=== PATIENT | female | born 1950 | race African-American/Black ===

== ENCOUNTER 2021-08-16 11:41 | Outpatient (CLI) | payer MEDICARE ==
[~2021-08-16 11:41] MED LIST: GABA-532 PO; LEVO137T24 PO; LISI40TA13 PO
== END 2021-08-16 23:59 | disposition home or self-care (01) ==
LOC: LAB 11:41
PROVIDERS: ATTEND Student in an Organized Health Care Education/Training Program
DX: Z01.812 Encounter for preprocedural laboratory examination (principal); Z20.822 Contact with and (suspected) exposure to COVID-19
CPT/HCPCS: C9803; U0003

== ENCOUNTER 2021-08-19 11:17 | Inpatient (IN) | payer MEDICARE, OTHER ==
[~2021-08-19] VITALS: Ht 170.2 cm; Wt 76.9 kg
[2021-08-19] MEDS ORDERED: BUPIVACAINE 0.5 % PF 150 MG/30 ML VIAL ONE (11:46)
[2021-08-19] MEDS ORDERED: MORPHINE SULFATE/PF 10 MG/10ML (1MG/ML) AMPUL ONE (11:47)
[2021-08-19 12:00] VITALS: BP 151/89
--- NOTE | 2021-08-19 12:00 | NUR ---
MS RN NOTES. PATIENT ARRIVED MED SURGE UNIT AROUND 1200. WILL HAVE REVERSE LEFT SHOULDER ARTHROPLASTY.
[2021-08-19] MEDS ORDERED: FENTANYL PF 250MCG/5ML AMPUL ONE (12:24)
[2021-08-19] MEDS ORDERED: HYDROMORPHONE INJ 2 MG/ML DISP.SYRIN ONE (12:24)
[2021-08-19] MEDS ORDERED: FENTANYL PF 100MCG/2ML AMPUL ONE ×3 (12:24→14:52)
[2021-08-19] MEDS ORDERED: MIDAZOLAM HCL 2 MG/2ML VIAL ONE (12:25)
[2021-08-19] MEDS ORDERED: FAMOTIDINE/PF INJ 20 MG/2 ML VIAL IV ONE (12:25)
[2021-08-19] MEDS ORDERED: ROCURONIUM BROMIDE 50 MG/5 ML ONE (12:26)
[2021-08-19] MEDS ORDERED: GLYCOPYRROLATE 0.2 MG/ML VIAL ONE (12:28)
[2021-08-19] MEDS ORDERED: POLYMYXIN B SULFATE 500,000 UNITS ONE (13:05)
[2021-08-19] MEDS ORDERED: TRANEXAMIC ACID 1,000 MG in IV NS 0.9% 100 ML IV ONE (13:30)
[2021-08-19] MEDS ORDERED: oxyCODONE/APAP (5/325 MG) 1 UDTAB TABLET PO PRN ×2 (14:30)
[2021-08-19] MEDS ORDERED: MORPHINE SULFATE INJ 4 MG/ML DISP.SYRIN IV PRN (14:30)
[2021-08-19 16:00] VITALS: BP 158/87
--- NOTE | 2021-08-19 16:00 | NUR ---
MS RN NOTES RECEIVED PATIENT FROM OR AFTER SURGERY. SP OF REVERSE LEFT SHOULDER ARTHROPLASTY. PATIENT ALERT AND ORIENTED TIMES 4. SEVERE PAIN NOTED. PERCOCET 10 MG GIVEN. NO RESPIRATORY DISTRESS NOTED. ABLE TO MAKE NEEDS KNOWN. IV ACCESS ON THE RIGHT HAND #20 INTACT AND FLUSHING WELL. ON NS IV HYDRATION AT 75 ML/HR. ALL NEEDS ATTENDED. BED LOCKED IN THE LOWEST POSITION. CALL LIGHT WITHIN REACH. WILL CONTINUE TO MONITOR.
[2021-08-19] MEDS ORDERED: HYDROMORPHONE 1 MG/1 ML DISP.SYRIN IV PRN (17:30)
[2021-08-19] MEDS ORDERED: MAG HYDROX/AL HYDROX/SIMETH 30 ML UDC PO PRN (17:30)
[2021-08-19] MEDS ORDERED: HYDROCODONE/APAP 10/325MG TABLET PO PRN (17:30)
[2021-08-19] MEDS ORDERED: ONDANSETRON HCL/PF 4 MG/2 ML VIAL IVP PRN (17:30)
[2021-08-19] MEDS ORDERED: MAGNESIUM HYDROXIDE 30 ML UDC PO PRN (17:30)
[2021-08-19] MEDS ORDERED: Z GUARD REMEDY 4 OZ OINT TP PRN (17:30)
[2021-08-19] MEDS ORDERED: ZOLPIDEM TARTRATE 5 MG TABLET PO PRN ×2 (17:30→23:00)
[2021-08-19] MEDS ORDERED: ACETAMINOPHEN 325 MG TABLET PO PRN (17:30)
[2021-08-19] MEDS ORDERED: IV NS 0.9% 1,000 ML IV PRN (17:30)
--- NOTE | 2021-08-19 19:30 | NUR ---
MS RN OPENING NOTES PATIENT SP OF REVERSE LEFT SHOULDER ARTHROPLASTY. PATIENT ALERT AND ORIENTED TIMES 4. NO RESPIRATORY DISTRESS NOTED. ABLE TO MAKE NEEDS KNOWN. IV ACCESS ON THE RIGHT HAND #20 INTACT AND FLUSHING WELL. ON NS IV HYDRATION AT 75 ML/HR. ALL NEEDS ATTENDED. BED LOCKED IN THE LOWEST POSITION. CALL LIGHT WITHIN REACH. WILL CONTINUE TO MONITOR.
--- NOTE | 2021-08-19 19:30 | NUR ---
MS RN CLOSING NOTES PATIENT SP OF REVERSE LEFT SHOULDER ARTHROPLASTY. PATIENT ALERT AND ORIENTED TIMES 4. NO RESPIRATORY DISTRESS NOTED. ABLE TO MAKE NEEDS KNOWN. IV ACCESS ON THE RIGHT HAND #20 INTACT AND FLUSHING WELL. ON NS IV HYDRATION AT 75 ML/HR. ALL NEEDS ATTENDED. BED LOCKED IN THE LOWEST POSITION. CALL LIGHT WITHIN REACH. WILL ENDORSE FOR NICOLE.
[2021-08-19 20:39] VITALS: BP 157/83
--- NOTE | 2021-08-19 20:50 | NUR ---
MS RN NOTES PRN PERCOCET GIVEN FOR SEVERE PAIN. SPOKE TO DR JOHNSON NEW ORDER FOR DILAUDID 1MG Q2HRS.NOTED.WILL CONTINUE TO MONITOR.
[2021-08-19] MEDS: ANCEF 1 GM/50 ML D5W IV SCH ×2 (21:31)
[2021-08-19] MEDS: HYDROMORPHONE 1 MG/1 ML DISP.SYRIN IV PRN (22:38)
[2021-08-19] MEDS ORDERED: diphenhydrAMINE HCL 25 MG CAPSULE PO PRN (23:00)
[2021-08-19] MEDS: GABAPENTIN 300 MG CAPSULE PO SCH (23:28)
[2021-08-19] MEDS: oxyCODONE IR immediate release 5 MG PO PRN (23:47)
--- NOTE | 2021-08-19 23:48 | NUR ---
RN NOTE PATIENT C/O 10/10 ON HER LEFT SHOULDER PAIN. GIVEN OXYIR 15 MG. PRIMARY NURSE AWARE.
[2021-08-20] MEDS: HYDROMORPHONE 1 MG/1 ML DISP.SYRIN IV PRN ×6 (00:50→16:50)
[2021-08-20] MEDS: oxyCODONE IR immediate release 5 MG PO PRN (03:15)
[2021-08-20] MEDS: ANCEF 1 GM/50 ML D5W IV SCH ×4 (05:04→13:03)
[2021-08-20] MEDS ORDERED: LEVOTHYROXINE SODIUM 137 MCG TABLET PO SCH (07:30)
--- NOTE | 2021-08-20 07:30 | NUR ---
RN MS NOTES PT IN BED, AWAKE, ALERT AND ORIENTED, WITH COMPLAINT OF LEFT SHOULDER PAIN, NOT IN DISTRESS, CALL LIGHT WITHIN REACH, SEEN BY DR. JOHNSON, NEEDS ATTENDED.
[2021-08-20] MEDS: GABAPENTIN 300 MG CAPSULE PO SCH ×2 (08:07→16:50)
[2021-08-20 08:33] VITALS: BP 100/59
[2021-08-20 08:33] LABS: BASOPHILS % (AUTO) 0.2 % (0.0-2.0); EOSINOPHILS % (AUTO) 1.1 % (0.0-6.0); HEMATOCRIT 30 % (33-45); HEMOGLOBIN 9.4 g/dL (11.5-14.8); LYMPHOCYTES # (AUTO) 0.6 K/uL (0.8-4.8); LYMPHOCYTES % (AUTO) 9.2 % (20.0-44.0); MEAN CORPUSCULAR HGB CONC 31 g/dl (31.0-36.0); MEAN CORPUSCULAR VOLUME 70 fL (82-100); MONOCYTES # (AUTO) 0.4 K/uL (0.1-1.30); MONOCYTES % (AUTO) 7.5 % (2.0-12.0); NEUTROPHILS # (AUTO) 4.9 K/uL (1.8-8.9); PLATELET COUNT (AUTO) 334 K/uL (150-450); RED BLOOD CELL COUNT(AUTO) 4.31 MIL/uL (4.0-5.2)
[2021-08-20] MEDS ORDERED: FAMOTIDINE (20 MG) 20 MG TABLET PO SCH (09:00)
[2021-08-20] MEDS ORDERED: LISINOPRIL (20MG) 20 MG TABLET PO SCH (09:00)
[2021-08-20] MEDS ORDERED: GABAPENTIN 100 MG CAPSULE PO SCH (09:00)
[2021-08-20 09:01] LABS: CALCIUM, SERUM 7.9 mg/dL (8.5-10.1); MAGNESIUM 1.7 mg/dL (1.8-2.4); PHOSPHORUS 2.5 mg/dL (2.5-4.9)
[2021-08-20] MEDS ORDERED: GABA300C PO (10:19)
[2021-08-20 16:00] VITALS: BP 160/79
--- NOTE | 2021-08-20 17:31 | NUR ---
RN MS NOTES PT AWAKE, ALERT AND ORIENTED, SITTING IN BED, PAIN MEDS GIVEN FOR PAIN MANAGEMENT, NOT IN DISTRESS, SEEN BY DR. HAWTHORNE TODAY, PT CLEARED BY ORTHO FOR D/C, DISCHARGE AND MEDICATION INSTRUCTIONS PROVIDED TO PT, VERBALIZED UNDERSTANDING, BELONGINGS ACCOUNTED FOR, NEW PRESCRITIONS GIVEN TO PT, PICKED UP BY FAMILY MEMBER, ASSISTED TO WHEELCHAIR TO HOSPITAL LOBBY BY [employer]PERATOR CHIEF, LEFT VIA PRIVATE CAR IN STABLE CONDITION.
== END 2021-08-20 17:45 | disposition home or self-care (01) | DRG 483 ==
LOC: DS 11:17 → MED 11:18
PROVIDERS: ADMIT Nurse Practitioner Acute Care
PROC: 0RRK00Z Replacement of Left Shoulder Joint with Reverse Ball and Socket Synthetic Substitute, Open Approach (ICD-10-PCS; principal; 2021-08-19)
DX: M19.012 Primary osteoarthritis, left shoulder (principal); E03.9 Hypothyroidism, unspecified; I10 Essential (primary) hypertension; D64.9 Anemia, unspecified; Z98.84 Bariatric surgery status; Z96.651 Presence of right artificial knee joint; Z79.899 Other long term (current) drug therapy; G89.29 Other chronic pain; G47.00 Insomnia, unspecified; Z82.3 Family history of stroke; Z82.49 Family history of ischemic heart disease and other diseases of the circulatory system; Z82.5 Family history of asthma and other chronic lower respiratory diseases
CPT/HCPCS: 36415; 80048-TC; 83735-TC; 84100-TC; 85025-TC; 88305-TC; 88311-TC; A4217; A4565; A6209; C1776; C9803; G0378; J0690; J1170; J2250; J2270; J2274; J2405; J2704; J2765; J3010; J3490; J7030; J7060; U0003